=== PATIENT | female | born 1995 | race Caucasian/White ===

== ENCOUNTER 2016-05-27 22:57 | Emergency (ER) | payer BC ==
[~2016-05-27] VITALS: Ht 172.7 cm; Wt 77.1 kg
--- NOTE | 2016-05-27 23:00 | NUR ---
Patient to ER bed 8 to gown for evaluation. Side rails up. Report given to Amna ESTEVEZ.
[2016-05-27 23:05] VITALS: BP 125/56; PULSE 72; RESP 16; TEMP 97.1; O2SAT 99
--- NOTE | 2016-05-27 23:08 | NUR ---
patient to ER C/O left ear pain 07/21. patient states that pain is worse in the last day but it started gradually and that "i think i have wax" Afebrile, AAOx4, unlabored breathing, no signs of acute distress.
--- NOTE | 2016-05-27 23:09 | NUR ---
ER MD Villalobos at bedside evaluating the patient
[2016-05-27 23:18] VITALS: BP 119/62; PULSE 75; RESP 17; TEMP 97.9; O2SAT 99
--- NOTE | 2016-05-27 23:18 | NUR ---
Patient given written and verbal discharge instructions and verbalizes understanding. ER MD Villalobos discussed with patient the results and treatment provided. Patient in stable condition. ID arm band removed. Rx of amoxicillin & tylenol given. Patient educated on pain management and to follow up with PMD. Pain Scale 0/10. Opportunity for questions provided and answered.
== END 2016-05-27 23:18 | disposition home or self-care (01) ==
LOC: SED 22:57
DX: H66.92 Otitis media, unspecified, left ear (principal)
CPT/HCPCS: 99283

== ENCOUNTER 2016-06-17 21:39 | Emergency (ER) | payer BC ==
[~2016-06-17] VITALS: Ht 172.7 cm; Wt 77.1 kg
[2016-06-17 21:54] VITALS: BP 117/70; PULSE 68; RESP 18; TEMP 98.1; O2SAT 97
--- NOTE | 2016-06-17 22:05 | NUR ---
Placed in room 02 . To gown for exam. Side rails up. Report given to ZENAIDA Shaw.
--- NOTE | 2016-06-17 22:10 | NUR ---
ER MICHELLE Mayorga at bedside examining patient.
--- NOTE | 2016-06-17 22:10 | NUR ---
Note milton in EDM - 06/17/16 at 2325 by KARRI Pt has some discomfort, redness, and swelling to the R eye. AAOx4. Will continue to monitor. No other injuries or complaints mentioned/noted. No distress noted.
--- NOTE | 2016-06-17 22:10 | NUR ---
Pt has some discomfort, redness, and swelling to both eyes. AAOx4. Will continue to monitor. No other injuries or complaints mentioned/noted. No distress noted.
[2016-06-17 22:34] VITALS: BP 117/70; PULSE 68; RESP 18; TEMP 98.1; O2SAT 97
--- NOTE | 2016-06-17 22:34 | NUR ---
Patient given written and verbal discharge instructions and verbalizes understanding. ER MD discussed with patient the results and treatment provided. Patient in stable condition. ID arm band removed. Rx of loratadine, polymyxin/trimethoprim given. Patient educated on pain management and to follow up with PMD. Pain Scale 0/10. Opportunity for questions provided and answered.
== END 2016-06-17 22:34 | disposition home or self-care (01) ==
LOC: SED 21:39
DX: H10.33 Unspecified acute conjunctivitis, bilateral (principal); J30.9 Allergic rhinitis, unspecified
CPT/HCPCS: 99283

== ENCOUNTER 2016-07-21 08:39 | Emergency (ER) | payer BC ==
[~2016-07-21] VITALS: Ht 172.7 cm; Wt 77.1 kg
--- NOTE | 2016-07-21 08:39 | NUR ---
BROUGHT BACK TO BED #4 AND TRIAGED. REPORT GIVEN TO JESÚS
[2016-07-21 08:40] VITALS: BP_SYST 134; BP_SYST 72; BP_DIAS 87; PULSE 66; RESP 17; TEMP 97.3; O2SAT 100
--- NOTE | 2016-07-21 08:40 | NUR ---
Dr. Ventura evaluated patient. No C-collar or spine precautions needed (neck pain is left lateral-no midline tenderness).
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
--- NOTE | 2016-07-21 08:45 | NUR ---
Patient to radiology
[2016-07-21] MEDS ORDERED: CYCLOBENZAPRINE HCL 10 MG TABLET (FLEXERIL) PO ONE (09:00)
[2016-07-21] MEDS ORDERED: IBUPROFEN 600 MG TABLET PO ONE (09:00)
--- NOTE | 2016-07-21 09:20 | NUR ---
Patient returned from radiology
--- NOTE | 2016-07-21 09:25 | NUR ---
Patient to radiology again.
[2016-07-21 09:26] LABS: BILIRUBIN,URINE NEGATIVE (NEGATIVE); BLOOD, URINE NEGATIVE (NEGATIVE); CLARITY/URINE CLEAR (CLEAR); COLOR,URINE YELLOW (YELLOW); GLUCOSE,URINE NEGATIVE (NEGATIVE); KETONES,URINE NEGATIVE (NEGATIVE); LEUKOCYTE ESTERASE ,URINE NEGATIVE (NEGATIVE); NITRITE, URINE NEGATIVE (NEGATIVE); PROTEIN URINE NEGATIVE (NEGATIVE); UROBILINOGEN,URINE 0.2 (0.2-1.0)
[2016-07-21 10:58] VITALS: BP 127/71; PULSE 68; RESP 19; TEMP 97.3; O2SAT 99
--- NOTE | 2016-07-21 10:59 | NUR ---
Patient given written and verbal discharge instructions and verbalizes understanding. ER MD discussed with patient the results and treatment provided. Given copies of tests performed in ER. Patient in stable condition. ID arm band removed. Rx of FLEXERIL, MOTRIN given. Patient educated on pain management and to follow up with PMD. Pain Scale 0/10. Opportunity for questions provided and answered.
== END 2016-07-21 10:58 | disposition home or self-care (01) ==
LOC: SED 08:39
DX: M25.562 Pain in left knee (principal); M54.2 Cervicalgia; M79.642 Pain in left hand; R07.89 Other chest pain; V43.51XA Car driver injured in collision with sport utility vehicle in traffic accident, initial encounter; Y93.89 Activity, other specified; Y92.488 Other paved roadways as the place of occurrence of the external cause; Y99.8 Other external cause status
CPT/HCPCS: 71020-TC; 72050-TC; 73502; 73564; 81003; 81025; 99285